=== PATIENT | male | born 1980 | race Caucasian/White ===

== ENCOUNTER 2020-07-24 08:27 | Emergency (ER) | payer OTHER, SELFPAY ==
[2020-07-24 08:42] VITALS: BP 206/113; PULSE 87; RESP 16; TEMP 36.7; O2SAT 95; BMI 34.9
--- NOTE | 2020-07-24 08:50 | ED_ITS ---
HPI - Abdominal Pain General: Chief Complaint: Abdominal Pain Stated Complaint: ab pain, right side Time Seen by Provider: 07/24/20 08:31 History of Present Illness: HPI narrative: 40-year-old male presents with right upper quadrant right flank pain began about 2 weeks ago. He is not really taken anything for it he has not noticed anything that makes it better or worse he has not noticed any trigger foods. He denies nausea vomiting or diarrhea he is not had any acholic stools. He has previously had a cholecystectomy. He denies dysuria urgency or frequency denies GI blood loss in any form. He denies any respiratory symptoms he cannot recall any particular trauma or triggering event that seem to started off he is not had any fever he is not had any hematuria. He cannot really particularly reproduce the pain with motion either. MD elicited complaint: abdominal pain Pertinent past history: none Onset (ago): week(s) (2) Pain Consistency: intermittent Location: R flank Severity: moderate Quality: cramping and stabbing Radiation: none Migration to: no migration Exacerbating factors: nothing Relieving factors: nothing Associated Symptoms: Denies bloating, change in bowel habits, change in stool character, chills, coffee ground emesis, constipation, GI cramping, diarrhea, dyspepsia, dysuria, excessive flatus, fever(s), heartburn, hematochezia, hematuria, hematemesis, fecal incontinence, loose stools, melena, nausea, poor appetite, syncope and vomiting Review of Systems Const: Denies: fever(s) or chills ENMT: Denies: throat pain, ear or mastoid pain, nasal discharge or nasal congestion Card: Denies: syncope Resp: Denies: dyspnea, productive cough or non-productive cough GI: Denies: nausea, vomiting, hematemesis, coffee ground emesis, heartburn, diarrhea, constipation, bloating, GI cramping, excessive flatus, fecal incontinence, change in bowel habits, change in stool character, hematochezia or melena : Denies: dysuria or hematuria Skin/Breast: Denies: rash or pruritus PFS ED PFSH: Medical History (Updated 07/24/20 @ 11:29 by Robert Woods DO) History of hypertension Surgical History (Updated 07/24/20 @ 10:53 by Robert Woods DO) History of cholecystectomy Physical Exam Const: COMMON NORMALS: no acute distress GENERAL APPEARANCE: cooperative and comfortable ORIENTATION/CONSCIOUSNESS: Yes awake, Yes oriented to person, Yes oriented to place and Yes oriented to time HENMT: COMMON NORMALS: normocephalic, atraumatic and hearing grossly normal bilaterally HEAD & SCALP: normocephalic and atraumatic Eye: COMMON NORMALS: Equal, round and reactive pupils present, EOMs intact bilaterally, conjunctivae normal and no scleral icterus CONJUNCTIVA: Yes conjunctivae normal PUPIL: Yes Equal, round and reactive pupils present Neck/C-Spine: COMMON NORMALS: full ROM, no lymphadenopathy, supple and no JVD Lymph: LYMPHATIC: no lymphadenopathy noted and no lymphedema noted Resp: COMMON NORMALS: normal respiratory effort, No retractions, No use of accessory muscles and clear to auscultation bilaterally AUSCULTATION: clear to auscultation bilaterally Cardio: COMMON NORMALS: no JVD, regular rate, regular rhythm and No murmurs present (Cardio) RATE: regular rate RHYTHM: regular rhythm GI: COMMON NORMALS: Soft to palpation and No hepatosplenomegaly present AUSCULTATION: Yes normoactive bowel sounds PALPATION: Yes Soft to palpation, No Tenderness to palpation present (GI), No Guarding due to palpation present (GI) and Yes No hepatosplenomegaly present Extremity: COMMON NORMALS: normal to inspection, capillary refill normal, no clubbing, cyanosis or edema, no calf tenderness and no pedal edema Neuro: SENSORIUM/ORIENTATION: Yes oriented to person, Yes oriented to place and Yes oriented to time Skin: COMMON NORMALS: no rashes or lesions noted GENERAL SKIN EXAM: no rashes or lesions noted Course Vital Signs: Vital signs: Vital Signs Temperature 98.0 F 07/24/20 08:42 Pulse Rate 79 07/24/20 12:24 Respiratory Rate 16 07/24/20 12:24 Blood Pressure 176/84 07/24/20 12:24 Pulse Oximetry 95 07/24/20 12:24 MDM - Abdominal Pain MDM Narrative: Medical decision making narrative: Discussion with patient. T and labs not really show anything in particular as to why he is having this flank pain. I am very concerned about his blood pressure along with his diabetes these being uncontrolled for a number of years. Discussed with him will refer him back to his primary care doctor for the chronic flank pain it seems a little bit more musculoskeletal especially since the CT and labs did not show anything. I stressed to him the importance of getting his diabetes and blood pressure under control that these are likely more pressing medical issues for his overall health than the flank pain is even though the flank pain is giving him more immediate difficulty at this time. Lab Data: Labs: Lab Results 07/24/20 07/24/20 07/24/20 Range/Units 09:00 09:00 09:01 WBC 8.1 (4.0-10.0) 10^3/ uL RBC 5.29 (4.1-5.3) 10^6/u L Hgb 16.3 (11.7-16.6) g/dL Hct 50.9 (42.0-52.0) % MCV 96.2 H (80-94) fL MCH 30.8 (28.0-34.0) pg MCHC 32.0 (30.0-36.0) g/dL RDW 12.7 (12.1-15.1) % Plt Count 137 (130-400) 10^3/c mm MPV 12.4 H (7.4-10.4) fL Neut % (Auto) 64.5 % Lymph % (Auto) 24.9 % [place] % (Auto) 8.7 % Eos % (Auto) 1.0 % Baso % (Auto) 0.7 % Neut # (Auto) 5.20 (1.8-7.7) 10^3/u L Lymph # (Auto) 2.0 (0.8-4.8) 10^3/u L [place] # (Auto) 0.7 (0.2-0.9) 10^3/u L Eos # (Auto) 0.1 (0.0-0.8) 10^3/u L Baso # (Auto) 0.1 (0.0-0.1) 10^3/u L Nucleated RBC % (a uto) 0 % Nucleated RBCs # 0.0 /100WBC Sodium 139 (136-145) mmol/L Potassium 3.4 L (3.5-5.1) mmol/L Chloride 98 (98-107) mmol/L Carbon Dioxide 31 H (22-29) mmol/L Anion Gap 13.4 (5-19) BUN 12 (6-20) mg/dL Creatinine 0.8 (0.7-1.2) mg/dL GFR Calculation 106.5 (90-130) mL/min Glucose 476 H (65-115) mg/dL Calculated Osmolal ity 305 H (285-295) mOsm/k g Calcium 9.1 (8.5-10.5) mg/dL Total Bilirubin 0.3 (0.15-1.2) mg/dL AST 15 (0-40) U/L ALT 15 (0-41) U/L Alkaline Phosphata se 113 (40-130) IU/L Total Protein 6.8 (6.6-8.7) g/dL Albumin 4.2 (3.5-5.2) g/dL Globulin 2.6 (1.3-4.6) g/dL Lipase 96 H (13-60) U/L Urine Color Straw (Yellow) Urine Appearance Clear (CLEAR) Urine pH 7.0 (5-7) Ur Specific Gravit y 1.005 (1.005-1.030) Urine Protein Trace (Negative) Urine Glucose (UA) 4+ H (Normal) Urine Ketones Negative (Negative) Urine Blood Neg (Negative) Urine Nitrate Negative (Negative) Urine Bilirubin Neg (NEGATIVE) Urine Urobilinogen Norm (Negative) mg/dL Ur Leukocyte Johnna ase Negative (Negative) Urine RBC None (0-2) /hpf Urine WBC None (0-5) /hpf Ur Squamous Epith Cells 0-4 H (0-5) Amorphous Sediment Not Reportable Urine Bacteria Trace (NONE) Discharge Plan Discharge Patient Disposition: Home Clinical Impression: Chronic right flank pain, HTN (hypertension), Diabetes Condition: Stable Prescriptions: New lisinopril 20 mg tablet 20 mg PO DAILY Qty: 30 RF: 0 amlodipine 10 mg tablet 10 mg PO DAILY Qty: 30 RF: 0 metformin 500 mg tablet,ER stephen.retention 24 hr 500 mg PO DAILY Qty: 30 RF: 0 Discharge Orders: Discharge Order (Routine); Ordered 07/24/20 Ordered By: Robert Woods Referrals: Ronaldo Diop FNP [Primary Care Provider] - Patient Instructions: Cholecystitis (ED), Abdominal Pain (ED) Discharge Date/Time: 07/24/20 12:26 Coding Level of Care Code ED [employer] Analyst for Chg Fwd Exam Comprehensive
--- NOTE | 2020-07-24 08:50 | ECG_ITS ---
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 Measurements Intervals [place] Rate: 82 P: 44 NH: 190 QRS: -18 QRSD: 99 T: 136 QT: 407 QTc: 477 Interpretive Statements SINUS RHYTHM POSSIBLE LEFT ATRIAL ENLARGEMENT [-0.1mV P WAVE IN V1/V2] ST DEVIATION AND MODERATE T-WAVE ABNORMALITY, CONSIDER LATERAL ISCHEMIA [-0.1+ mV T WAVE IN I/aVL/V5/V6] No previous ECG available for comparison Electronically Signed On 07-24-2020 17:27:35 CDT by Caren Salcido M.D. [email or web address]
[2020-07-24 09:08] LABS: Basophils # 0.1 10^3/uL (0.0-0.1); Basophils % 0.7 %; Eosinophils # 0.1 10^3/uL (0.0-0.8); Hematocrit 50.9 % (42.0-52.0); Hemoglobin 16.3 g/dL (11.7-16.6); Lymphocytes % 24.9 %; Mean Corpuscular Hemoglobin 30.8 pg (28.0-34.0); Mean Corpuscular Volume 96.2 fL (80-94); Mean Platelet Volume 12.4 fL (7.4-10.4); Monocytes # 0.7 10^3/uL (0.2-0.9); Monocytes % 8.7 %; Neutrophils % 64.5 %; Nucleated Red Blood Cells % 0 %; Platelet Count 137 10^3/cmm (130-400); Red Blood Count 5.29 10^6/uL (4.1-5.3); Red Cell Distribution Width 12.7 % (12.1-15.1); White Blood Count 8.1 10^3/uL (4.0-10.0)
[2020-07-24 09:17] LABS: Add Urine Microscopic? YES; Bilirubin Urine Neg (NEGATIVE); Blood Urine Neg (Negative); Glucose Urine UA 4+ (Normal); Ketones Urine Negative (Negative); Leukocyte Esterase Urine Negative (Negative); Nitrate Urine Negative (Negative); Protein Urine Trace (Negative); Specific Gravity, Urine 1.005 (1.005-1.030); Urine Appearance Clear (CLEAR); Urine Color Straw (Yellow); Urobilinogen Urine Norm (Negative)
--- NOTE | 2020-07-24 09:23 | CT_ITS ---
WS: [id number] CT ABDOMEN PELVIS TECHNIQUE: Contrast-enhanced CT of the abdomen and pelvis with coronal and sagittal reformatted image s. CLINICAL INFORMATION: abd pain COMPARISON: None. DLP: 1148.[address] scans at [facility] use at least one of these dose optimization techniques: automat ed exposure control; mA and/or kV adjustment per patient size (includes targeted exams where dose is matched to clinical indication); or iterative reconstruction. FINDINGS: Mild diffuse fatty infiltration of the liver. Cholecystectomy. Portal veins and splenic vein are norm al. Normal spleen. Normal GE junction. Subsegmental atelectasis in the lung bases. Normal caliber abd ominal aorta. Thickened slightly nodular adrenal glands bilaterally most consistent with adrenal hype rplasia. Normal renal parenchymal enhancement. No hydronephrosis. A few shoddy periaortic lymph nodes . No lymphadenopathy. Normal sigmoid colon. Mild sigmoid constipation. No evidence of small or large bowel obstruction. Nor mal appendix. No inguinal lymphadenopathy. Chronic bilateral pars defects L5-S1. No anterolisthesis. CT/CT abdomen pelvis w con* [id number] IMPRESSION: 1. Mild diffuse fatty infiltration of the liver. Prior cholecystectomy. 2. Normal appendix in the right lower quadrant. 3. No evidence of small or large bowel obstruction. Mild sigmoid constipation. 4. Normal caliber abdominal aorta. 5. No hydronephrosis in either kidney. 6. Thickened slightly nodular adrenal glands bilaterally most consistent with adrenal hyperplasia. Recommend biochemical correlation/endocrinology consultati on 7. Chronic bilateral pars defects L5-S1. No anterolisthesis. Attempted Robert Woods DO at 07/24/2020 10:46 AM.
[2020-07-24 09:25] LABS: Alanine Aminotransferase 15 U/L (0-41); Albumin Level 4.2 g/dL (3.5-5.2); Alkaline Phosphatase 113 IU/L (40-130); Anion Gap 13.4 (5-19); Aspartate Amino Transferase 15 U/L (0-40); Blood Urea Nitrogen 12 mg/dL (6-20); Calcium 9.1 mg/dL (8.5-10.5); Carbon Dioxide 31 mmol/L (22-29); Chloride 98 mmol/L (98-107); Globulin 2.6 g/dL (1.3-4.6); Glomerular Filtration Rate 106.5 mL/min (90-130); Glucose 476 mg/dL (65-115); Lipase 96 U/L (13-60); Osmolality Calculated 305 mOsm/kg (285-295); Potassium 3.4 mmol/L (3.5-5.1); Sodium 139 mmol/L (136-145); Total Bilirubin 0.3 mg/dL (0.15-1.2); Total Protein 6.8 g/dL (6.6-8.7)
[2020-07-24 09:29] LABS: Add Urine Culture? No; Bacteria Urine TRACE; Squamous Epithelial Cell Urine 0-4 (0-5)
[2020-07-24] MEDS: iohexol 300 mg/mL 100 mL Btl IV (10:31)
[2020-07-24 11:20] VITALS: BP 203/117
[2020-07-24] MEDS: hyDRALAzine 20 mg/mL INJ 1 mL IVP (11:58)
[2020-07-24] MEDS: amlodipine 10 mg Tablet PO (11:58)
[2020-07-24 12:00] VITALS: BP 184/116; O2SAT 95
[2020-07-24 12:24] VITALS: BP 176/84; PULSE 79; RESP 16; O2SAT 95
--- NOTE | 2020-07-24 12:33 | DCPLANNER ---
project manager interior design was asked by Dr. Woods to speak with patient about getting established with a primary care physician. project manager interior design spoke with patient, called the office of Dr. Curry, spoke with Kylah. project manager interior design gave clinic patients information, a follow up appointment was scheduled for Tuesday, August 07 at 3:[address] Curry. project manager interior design gave patient the appointment information.
--- NOTE | 2020-08-17 15:10 | DCPLANNER ---
Patient had an appointment scheduled for 08.07.[address] Curry - patient did attend the appointment.
== END 2020-07-24 12:26 | disposition home or self-care (01) ==
PROVIDERS: Emergency Provider Family Medicine; PCP Nurse Practitioner Family
DX: G89.29 Other chronic pain (principal); R10.9 Unspecified abdominal pain; I10 Essential (primary) hypertension; E11.9 Type 2 diabetes mellitus without complications; Z79.84 Long term (current) use of oral hypoglycemic drugs
CPT/HCPCS: 12345; 74177; 80053; 81001; 83690; 85025; 93005; 96374; 96375; 99283; 99284; J0360; Q9967

== ENCOUNTER → 2020-08-29 15:25 | Outpatient (BNVA) | payer OTHER, SELFPAY | PROVIDERS: PCP Family Medicine; Visit Provider Family Medicine | DX: I10 Essential (primary) hypertension (principal); E11.9 Type 2 diabetes mellitus without complications | CPT/HCPCS: 80053; 80061; 82043; 83036 ==

== ENCOUNTER → 2020-09-05 15:47 | Outpatient (BNVA) | payer OTHER, SELFPAY | PROVIDERS: PCP Family Medicine; Visit Provider Family Medicine | DX: E87.6 Hypokalemia (principal) | CPT/HCPCS: 80048 ==

== ENCOUNTER → 2020-09-21 14:52 | Outpatient (BNVA) | payer OTHER, SELFPAY | PROVIDERS: PCP Family Medicine; Visit Provider Family Medicine | DX: E87.6 Hypokalemia (principal); I10 Essential (primary) hypertension | CPT/HCPCS: 80048 ==

== ENCOUNTER → 2020-10-19 08:09 | Outpatient (BNVA) | payer OTHER, SELFPAY | PROVIDERS: PCP Family Medicine; Visit Provider Nurse Practitioner Family | DX: Z20.828 Contact with and (suspected) exposure to other viral communicable diseases (principal) | CPT/HCPCS: 87635 ==

== ENCOUNTER → 2020-11-02 15:04 | Outpatient (BNVA) | payer OTHER, SELFPAY | PROVIDERS: PCP Family Medicine; Visit Provider Family Medicine | DX: I10 Essential (primary) hypertension (principal); E11.9 Type 2 diabetes mellitus without complications; E87.6 Hypokalemia | CPT/HCPCS: 80048 ==

== ENCOUNTER → 2020-11-28 15:46 | Outpatient (BNVA) | payer OTHER, SELFPAY | PROVIDERS: PCP Family Medicine; Visit Provider Family Medicine | DX: E11.9 Type 2 diabetes mellitus without complications (principal); I10 Essential (primary) hypertension | CPT/HCPCS: 80053; 83036 ==

== ENCOUNTER → 2020-12-19 15:41 | Outpatient (BNVA) | payer OTHER, SELFPAY | PROVIDERS: PCP Family Medicine; Visit Provider Family Medicine | DX: E87.6 Hypokalemia (principal); E27.8 Other specified disorders of adrenal gland | CPT/HCPCS: 80048 ==

== ENCOUNTER → 2021-01-11 08:20 | Outpatient (BNVA) | payer OTHER, SELFPAY | PROVIDERS: PCP Family Medicine; Referring Provider Family Medicine; Visit Provider Internal Medicine | DX: E27.8 Other specified disorders of adrenal gland (principal); E87.6 Hypokalemia; I15.9 Secondary hypertension, unspecified | CPT/HCPCS: 99205 ==

== ENCOUNTER 2021-01-23 16:01 | Outpatient (CLI) | payer OTHER, SELFPAY ==
[2021-01-23 22:05] LABS: Anion Gap 15.8 (5-19); Blood Urea Nitrogen 17 mg/dL (6-20); Calcium 9.2 mg/dL (8.5-10.5); Carbon Dioxide 24 mmol/L (22-29); Chloride 106 mmol/L (98-107); Glomerular Filtration Rate 73.8 mL/min (90-130); Glucose 108 mg/dL (65-115); Osmolality Calculated 296 mOsm/kg (285-295); Potassium 3.8 mmol/L (3.5-5.1); Sodium 142 mmol/L (136-145)
[2021-02-02 02:17] LABS: Plasma Renin Activity LC/MS/MS 0.37 ng/mL/h (0.25-5.82)
== END 2021-01-23 16:02 | disposition home or self-care (01) ==
PROVIDERS: PCP Family Medicine; Visit Provider Internal Medicine
DX: E27.8 Other specified disorders of adrenal gland (principal); E87.6 Hypokalemia; I15.9 Secondary hypertension, unspecified
CPT/HCPCS: 80048; 82024; 82088; 84244

== ENCOUNTER 2021-01-28 10:32 | Outpatient (CLI) | payer OTHER, SELFPAY ==
[2021-01-28 11:58] LABS: Urine Creatinine 48 mg/dL (39-259)
[2021-01-28 12:29] LABS: Total Volume Urine 2650 ml
[2021-02-01 18:32] LABS: Free Cortisol Urine 49.8 mcg/24 h (4.0-50.0); Total Urine 2900 mL; Urine Creatinine 1.37 g/24 h (0.50-2.15)
== END 2021-01-28 10:33 | disposition home or self-care (01) ==
PROVIDERS: PCP Family Medicine; Visit Provider Internal Medicine
DX: E27.8 Other specified disorders of adrenal gland (principal); E87.6 Hypokalemia; I15.9 Secondary hypertension, unspecified
CPT/HCPCS: 82384; 82530; 82570

== ENCOUNTER → 2021-02-14 15:33 | Outpatient (BNVA) | payer OTHER, SELFPAY | PROVIDERS: PCP Family Medicine; Visit Provider Internal Medicine | DX: E27.8 Other specified disorders of adrenal gland (principal); E87.6 Hypokalemia; I15.9 Secondary hypertension, unspecified | CPT/HCPCS: 99214 ==

== ENCOUNTER → 2021-02-21 15:38 | Outpatient (BNVA) | payer OTHER, SELFPAY | PROVIDERS: PCP Family Medicine; Visit Provider Family Medicine | DX: E11.9 Type 2 diabetes mellitus without complications (principal) | CPT/HCPCS: 80053; 83036 ==

== ENCOUNTER → 2021-06-13 08:18 | Outpatient (BNVA) | payer OTHER, SELFPAY | PROVIDERS: PCP Family Medicine; Visit Provider Family Medicine | DX: I15.9 Secondary hypertension, unspecified (principal); E11.9 Type 2 diabetes mellitus without complications; R20.0 Anesthesia of skin; F17.219 Nicotine dependence, cigarettes, with unspecified nicotine-induced disorders | CPT/HCPCS: 80053; 80061; 82043; 83036; 85025 ==

== ENCOUNTER → 2021-08-30 06:53 | Day surgery (SDC) | payer OTHER, SELFPAY ==
[2021-08-30 07:10] VITALS: BMI 34.3
[2021-08-30 07:19] VITALS: BP 174/100; PULSE 68; RESP 18; TEMP 36.5; O2SAT 97
[2021-08-30] MEDS: cosyntropin 0.25 mg SDV IVP (07:40)
[2021-08-30 08:02] LABS: Cortisol Random 9.64 ug/dL (2.47-19.5)
[2021-08-30 09:00] LABS: Cosyntropin Baseline 9.64 mcg/dL
[2021-08-30 09:08] LABS: Cosyntropin 30 Minute 29.93 mcg/dL
[2021-08-30 09:20] LABS: Cosyntropin 1 Hour 35.09 mcg/dL
== END ==
PROVIDERS: PCP Family Medicine; Visit Provider Internal Medicine
DX: E27.8 Other specified disorders of adrenal gland (principal); E87.6 Hypokalemia; I15.9 Secondary hypertension, unspecified
CPT/HCPCS: 36415; 82533; 96374; J0834